=== PATIENT | female | born 2000 | race Caucasian/White ===

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

== ENCOUNTER → 2022-04-17 | Outpatient (CLI) | payer BC ==
--- NOTE | 2022-04-17 18:24 | Diagnostic Imaging Report ---
INDICATION: Abdominal pain. FINDINGS: The lung bases are clear. The bowel gas pattern is nonspecific. There is no free air. There is no abnormal abdominal calcifications. IMPRESSION: Nonspecific bowel gas pattern. Dictated by: Dictated on workstation # [id number]
== END ==
LOC: RAD FS 17:55
PROVIDERS: ATTEND Nurse Practitioner Family
DX: R10.9 Unspecified abdominal pain (principal)
CPT/HCPCS: 74018